=== PATIENT | male | born 2000 | race Caucasian/White ===

== ENCOUNTER 2024-05-01 14:09 | Emergency (ER) | payer BC ==
[~2024-05-01] VITALS: Ht 167.6 cm; Wt 56.6 kg
[2024-05-01 14:15] VITALS: O2SAT 100
[2024-05-01] MEDS ORDERED: SODIUM CHLORIDE 0.9% 1,000 ML IV ONE (14:45)
[2024-05-01] MEDS ORDERED: LEVETIRACETAM 1000MG PREMIX 100 ML IV ONE (14:45)
[2024-05-01 15:22] LABS: CHLORIDE 103 mEq/L (98-107); POTASSIUM 3.5 mEq/L (3.5-5.1); SODIUM 139 mEq/L (136-145)
[2024-05-01 15:23] LABS: CALCIUM 9.3 mg/dL (8.7-10.4); CARBON DIOXIDE 26 mEq/L (21-32)
[2024-05-01 15:28] LABS: CREATININE 0.9 mg/dL (0.6-1.3); GLUCOSE 95 mg/dL (70-105); UREA NITROGEN BLOOD 11 mg/dL (9-23)
[2024-05-01 15:35] LABS: EOSINOPHILS % 2.5 % (0.0-5.0); HEMATOCRIT. 44.2 % (42.0-52.0); HEMOGLOBIN. 14.5 g/dL (14.0-18.0); LYMPHOCYTES % 36.7 % (20.0-50.0); MEAN CORPUSCULAR HEMOGLOBIN 30.3 pg (28.0-32.0); MEAN CORPUSCULAR HGB CONC 32.8 g/dL (31.0-37.0); MEAN CORPUSCULAR VOLUME 92.4 fL (80.0-94.0); MEAN PLATELET VOLUME 8.3 fl (7.4-10.4); MONOCYTES % 9.5 % (2.0-8.0); NEUTROPHILS % 50.3 % (40.0-76.0); PLATELET 193 x1000/uL (130-400); RED BLOOD CELL COUNT 4.78 mill/uL (4.7-6.1); RED CELL DISTRIBUTION WIDTH 13.5 % (11.6-14.6); WHITE BLOOD COUNT 5.8 x1000/uL (4.5-11.0)
[2024-05-01 16:22] LABS: INR 1.1; PROTHROMBIN TIME 11.5 sec (9.6-11.0)
[2024-05-01 16:55] VITALS: BP 102/66; PULSE 65; RESP 18; TEMP 36.9; O2SAT 100
== END 2024-05-01 17:02 | disposition home or self-care (01) ==
LOC: ER 14:32
DX: R55 Syncope and collapse (principal)
CPT/HCPCS: 36415; 80048; 80320; 83605; 85025; 93005; 99284; J7030; G0480